=== PATIENT | male | born 1945 | race Caucasian/White ===

== ENCOUNTER 2016-11-19 09:38 | Day surgery (SDC) | payer MEDICARE, BC ==
[~2016-11-19] VITALS: Ht 180.3 cm; Wt 84.0 kg
[~2016-11-19 09:38] MED LIST: ASPIRIN EC81 MG PO; COZAAR25 MG PO; HYDRODIURIL25 MG PO; PROTONIX40 MG PO; TAZTIA XT240 MG PO; THERAGRAN-M1 TAB PO; VITAMIN D1000 UNIT PO
== END 2016-11-19 12:40 | disposition disaster alternative care site (69) ==
LOC: GSIP 09:38 → GEND 09:38 → GPOC 10:00 → GEND 12:40
PROC: 0DB58ZX Excision of Esophagus, Via Natural or Artificial Opening Endoscopic, Diagnostic (ICD-10-PCS; principal; 2016-11-19)
PROC: 0DB68ZX Excision of Stomach, Via Natural or Artificial Opening Endoscopic, Diagnostic (ICD-10-PCS; 2016-11-19)
DX: K31.7 Polyp of stomach and duodenum (principal); K22.70 Barrett's esophagus without dysplasia; K21.9 Gastro-esophageal reflux disease without esophagitis; I10 Essential (primary) hypertension
CPT/HCPCS: J7030